=== PATIENT | male | born 1960 | race Caucasian/White ===

== ENCOUNTER 2016-10-28 08:41 | Day surgery (SDC) | payer BC ==
[2016-10-24 12:13] VITALS: BMI 27.8
[~2016-10-28 08:41] MED LIST: LACTATED RINGERS 1,000 ML IV SCH
[2016-10-28 10:01] VITALS: RESP 16; TEMP 97.1
[2016-10-28] MEDS ORDERED: LIDOCAINE 1% 20 ML VIAL (10MG/ML) FOR IV START INTRADERMA ONE (10:06)
[2016-10-28] MEDS ORDERED: PROPOFOL 10 MG/ML 20 ML VIAL IV ONE (10:37)
[2016-10-28] MEDS ORDERED: LIDOCAINE 1% INJ 10MG/ML (20 ML MDV) ONE (10:37)
--- NOTE | 2016-10-28 11:07 | P.PCN ---
Date of Procedure: 10/28/16 Procedure(s) Performed: Procedure: Colonoscopy and polypectomy. Preoperative diagnosis: Change in bowel habits. Postoperative diagnosis: 1. Small polyp in the rectum snared but no large polyps or cancer. 2. Mild sigmoid diverticulosis with no evidence of acute diverticulitis or strictures. Preparation: HalfLytely prep. Sedation: Was provided by anesthesia. Brief clinical history: The patient is a 56-year-old male who is referred for this evaluation because of change in bowel habits which he has been experiencing for the last 3 or 4 years. He reported occasional episodes of constipation and not having a bowel movement for a day or 2. Denied any bleeding, abdominal pains or family history of colon cancer. This would be his first colonoscopy. Procedure: With the patient on his left lateral decubitus position and after informed consent and adequate sedation, the perianal area was inspected and it did not show any fissures or fistulas. There were no masses felt on digital rectal examination. The Olympus CFQ 160L video colonoscope was then inserted in the rectum in the usual fashion and advanced to the cecum. There was few small diverticular orifices seen scattered in the sigmoid with no evidence of acute diverticulitis or strictures. The mucosa appeared healthy. A small polyp was seen in the rectum close to the rectosigmoid junction which was snared and retrieved by suction but there were no large polyps or cancer. I retroflexed endoscope in the rectum before the endoscope was withdrawn. The patient tolerated the procedure well. Plan: The patient was reassured. Discussed dietary measures. I anticipate repeating this exam in around 5 years. He will follow up with you as planned.
[2016-10-28 11:16] VITALS: BP 118/65; PULSE 62
== END 2016-10-28 11:45 | disposition home or self-care (01) ==
LOC: ORWHC2ENDO 08:41
DX: D12.8 Benign neoplasm of rectum (principal); K57.30 Diverticulosis of large intestine without perforation or abscess without bleeding
CPT/HCPCS: 88305; 45385; J2001; J2704